=== PATIENT | male | born 1970 | race Caucasian/White ===

== ENCOUNTER 2019-03-22 14:07 | Emergency (ER) | payer OTHER ==
[~2019-03-22] VITALS: Ht 170.2 cm; Wt 81.7 kg
[~2019-03-22 14:07] MED LIST: IBUP800 PO; Veetids 500500 MG PO
[2019-03-22] MEDS ORDERED: Norco 5-325 Ta1 EACH PO (14:42)
[2019-03-22] MEDS ORDERED: Zovirax800 MG PO (14:42)
== END 2019-03-22 14:57 | disposition home or self-care (01) ==
LOC: ER 14:07
DX: B02.9 Zoster without complications (principal)
CPT/HCPCS: 99282

== ENCOUNTER 2019-04-27 21:30 | Emergency (ER) | payer OTHER ==
[~2019-04-27] VITALS: Ht 170.2 cm; Wt 81.7 kg
[~2019-04-27 21:30] MED LIST changes: +Norco 5-325 Ta1 EACH PO; +Zovirax800 MG PO
[2019-04-27] MEDS ORDERED: IBUP600 PO (23:47)
[2019-04-27] MEDS ORDERED: Neurontin 300300 MG PO (23:47)
[2019-04-27] MEDS ORDERED: LIDOCAINE30 GM TOP (23:47)
== END 2019-04-28 00:02 | disposition home or self-care (01) ==
LOC: ER 21:30
DX: B02.29 Other postherpetic nervous system involvement (principal)
CPT/HCPCS: 96372; 99283-25; J1885

== ENCOUNTER 2019-08-29 15:20 | Emergency (ER) | payer OTHER ==
[~2019-08-29] VITALS: Ht 170.2 cm; Wt 79.4 kg
[~2019-08-29 15:20] MED LIST changes: +IBUP600 PO; +LIDOCAINE30 GM TOP; +Neurontin 300300 MG PO
== END 2019-08-29 17:27 | disposition home or self-care (01) ==
LOC: ER 15:20
DX: M25.421 Effusion, right elbow (principal); F17.210 Nicotine dependence, cigarettes, uncomplicated; W01.0XXA Fall on same level from slipping, tripping and stumbling without subsequent striking against object, initial encounter
CPT/HCPCS: 73080; 99283-25

== ENCOUNTER → 2020-05-31 | Outpatient (CLI) | payer OTHER | END | disposition home or self-care (01) | LOC: LAB SHORT 13:26 → LAB EV 13:26 | DX: S81.801A Unspecified open wound, right lower leg, initial encounter (principal) | CPT/HCPCS: 87070; 87075; 87077; 87147; 87186; 87205 ==

== ENCOUNTER 2020-09-20 17:37 | Emergency (ER) | payer OTHER ==
[~2020-09-20] VITALS: Ht 170.2 cm; Wt 79.4 kg
[2020-09-20] MEDS ORDERED: DOXY100 PO (19:08)
[2020-09-20] MEDS ORDERED: Norco 7.5-3251 EACH PO (19:08)
[2020-09-20] MEDS ORDERED: IBUP800 PO (19:08)
== END 2020-09-20 19:21 | disposition home or self-care (01) ==
LOC: ER 17:37
DX: L02.411 Cutaneous abscess of right axilla (principal)
CPT/HCPCS: 10061; 99283-25; A9270

== ENCOUNTER 2021-08-29 15:03 | Emergency (ER) | payer OTHER ==
[~2021-08-29] VITALS: Ht 170.2 cm; Wt 81.7 kg
[~2021-08-29 15:03] MED LIST changes: +DOXY100 PO; +Norco 7.5-3251 EACH PO
[2021-08-29] MEDS ORDERED: Norco 5-325 Ta1 EACH PO (16:00)
== END 2021-08-29 16:10 | disposition home or self-care (01) ==
LOC: ER 15:03
DX: S22.32XA Fracture of one rib, left side, initial encounter for closed fracture (principal); Z87.891 Personal history of nicotine dependence; W18.2XXA Fall in (into) shower or empty bathtub, initial encounter
CPT/HCPCS: 71101; 99283-25

== ENCOUNTER 2021-09-18 18:58 | Emergency (ER) | payer OTHER ==
[~2021-09-18] VITALS: Ht 170.2 cm; Wt 81.7 kg
== END 2021-09-18 21:25 | disposition left against medical advice (07) ==
LOC: ER 18:58
DX: Z53.21 Procedure and treatment not carried out due to patient leaving prior to being seen by health care provider (principal)

== ENCOUNTER 2024-11-14 13:36 | Emergency (ER) | payer OTHER ==
[~2024-11-14] VITALS: Ht 170.2 cm; Wt 81.7 kg
[~2024-11-14 13:36] MED LIST changes: +SULTRIDS PO
[2024-11-14 13:45] VITALS: BP 142/93
== END 2024-11-14 15:05 | disposition home or self-care (01) ==
LOC: ER 13:36
DX: S61.051A Open bite of right thumb without damage to nail, initial encounter (principal); W54.0XXA Bitten by dog, initial encounter; Z87.891 Personal history of nicotine dependence; Z59.89 Other problems related to housing and economic circumstances
CPT/HCPCS: 29125; 73140; 99283-25

== ENCOUNTER 2024-11-18 09:55 | Emergency (ER) | payer OTHER ==
[~2024-11-18] VITALS: Ht 170.2 cm; Wt 74.8 kg
[2024-11-18 10:18] VITALS: BP 161/99
[2024-11-18] MEDS ORDERED: AMOCLA875 PO (16:32)
== END 2024-11-18 10:30 | disposition home or self-care (01) ==
LOC: ER 09:55
DX: S60.371A Other superficial bite of right thumb, initial encounter (principal); S60.571A Other superficial bite of hand of right hand, initial encounter; W54.0XXA Bitten by dog, initial encounter; Z87.891 Personal history of nicotine dependence
CPT/HCPCS: 99283

== ENCOUNTER 2025-03-24 18:12 | Emergency (ER) | payer OTHER ==
[~2025-03-24] VITALS: Ht 170.2 cm; Wt 72.6 kg
[~2025-03-24 18:12] MED LIST changes: +AMOCLA875 PO
[2025-03-24 18:20] VITALS: BP 153/84
[2025-03-24] MEDS ORDERED: Doxycycline Mo100 M1 PO ×2 (18:27→19:14)
[2025-03-24] MEDS ORDERED: CEPH500 PO ×2 (18:27→19:14)
== END 2025-03-24 18:23 | disposition home or self-care (01) ==
LOC: ER 18:12
DX: L03.012 Cellulitis of left finger (principal); L03.011 Cellulitis of right finger; Z79.2 Long term (current) use of antibiotics
CPT/HCPCS: 99282; A9270

== ENCOUNTER 2025-04-04 18:43 | Emergency (ER) | payer OTHER ==
[~2025-04-04] VITALS: Ht 170.2 cm; Wt 74.8 kg
[~2025-04-04 18:43] MED LIST changes: +CEPH500 PO; +Doxycycline Mo100 M1 PO
[2025-04-04 18:50] VITALS: BP 147/98
== END 2025-04-04 18:54 | disposition home or self-care (01) ==
LOC: ER 18:43
DX: Z48.00 Encounter for change or removal of nonsurgical wound dressing (principal); Z87.891 Personal history of nicotine dependence
CPT/HCPCS: 99282

== ENCOUNTER 2025-05-29 13:24 | Emergency (ER) | payer OTHER ==
[~2025-05-29] VITALS: Ht 177.8 cm; Wt 95.2 kg
[2025-05-29 14:10] VITALS: BP 132/74
[2025-05-29] MEDS ORDERED: CEPH500 PO (14:15)
== END 2025-05-29 14:15 | disposition home or self-care (01) ==
LOC: ER 13:24
DX: S50.811A Abrasion of right forearm, initial encounter (principal); L03.113 Cellulitis of right upper limb; Z79.2 Long term (current) use of antibiotics; Z79.899 Other long term (current) drug therapy; Z87.891 Personal history of nicotine dependence; W20.8XXA Other cause of strike by thrown, projected or falling object, initial encounter
CPT/HCPCS: 99282

== ENCOUNTER 2025-06-11 16:48 | Emergency (ER) | payer OTHER ==
[~2025-06-11] VITALS: Ht 177.8 cm; Wt 90.7 kg
[2025-06-11 17:38] VITALS: BP 135/92
[2025-06-11] MEDS ORDERED: CEPH500 PO (17:44)
[2025-06-11] MEDS ORDERED: Mupirocin22 GM TOP (17:44)
== END 2025-06-11 17:49 | disposition home or self-care (01) ==
LOC: ER 16:48
DX: L03.113 Cellulitis of right upper limb (principal); S50.811A Abrasion of right forearm, initial encounter; W19.XXXA Unspecified fall, initial encounter
CPT/HCPCS: 99281; A9270

== ENCOUNTER 2025-07-09 13:47 | Emergency (ER) | payer OTHER ==
[~2025-07-09] VITALS: Ht 170.2 cm; Wt 77.1 kg
[~2025-07-09 13:47] MED LIST changes: +Mupirocin22 GM TOP
[2025-07-09 14:20] VITALS: BP 131/96
[2025-07-09] MEDS ORDERED: MUPIROCIN1 G1 TOP (14:23)
== END 2025-07-09 14:22 | disposition home or self-care (01) ==
LOC: ER 13:47
DX: L02.413 Cutaneous abscess of right upper limb (principal); Z87.891 Personal history of nicotine dependence
CPT/HCPCS: 99283